=== PATIENT | female | born 2000 | race Caucasian/White ===

== ENCOUNTER 2020-11-18 20:42 | Emergency (ER) | payer SELFPAY ==
--- NOTE | 2020-11-18 22:28 | EDM.PDOC ---
ED HPI GENERAL MEDICAL PROBLEM - General Chief Complaint: Abdominal Pain Stated Complaint: ABDOMINAL PAIN/12 WKS Time Seen by Provider: 11/18/20 20:56 Source of Information: Reports: Patient, Significant Other (Boyfriend) History Limitations: Reports: No Limitations - History of Present Illness INITIAL COMMENTS - FREE TEXT/NARRATIVE: Ms. Lopez is a very pleasant 20-year-old woman who now presents the ED stating that she is , with pink spotting coming and going for the past 2 to 3 months, some bilateral lower abdominal discomfort yesterday, 11/17/2020, and nausea this morning. She has also experienced some occasional morning sickness. The patient is G1, P0, with an LMP 08/23/2020, giving her a gestational age of 12w 3d by dates, and an SAUL of 05/30/2021. She states that she has not received any obstetric care, but that she did undergo an obstetric ultrasound on 10/13/2020, which confirmed a SLIP at 8w 0d at that time = 13w 1d gestation today, with an SAUL of 05/25/2021. She states that the ultrasound made no mention of a subchorionic hemorrhage. She states that she is taking a vitamin that she believes contains folic acid. Here in the ED, the patient is found hemodynamically stable, afebrile, saturating 99% on room air. She appears to be comfortable, in no acute distress. Other than the pink spotting, the lower abdominal discomfort, and nausea, the patient denies having a recent fever, chills, sore throat, ear pain, nasal or sinus congestion, cough, dyspnea, chest pain, palpitations, vomiting, constipation, diarrhea, urinary symptoms, recent weight gain or weight loss, recent bloody bowel movements or black bowel movements, recent joint aches, headaches, or rashes. The patient does not have a PCP or Computer Mechanic, stating that she recently moved here from [place]. She has received 2 COVID vaccinations. 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: : 1 Para: 0 Social & Family History - Tobacco Use Tobacco Use Status *Q: Current Every Day Tobacco User Tobacco Use Within Last Twelve Months: Vaping (Nicotine, CBD, THC) Years of Tobacco use: 3 Packs/Tins Daily: 0.3 Month/Year Tobacco Last Used: Stopped smoking while Tobacco Use Comment: Started smoking 2017 - Caffeine Use Caffeine Use: Reports: Coffee, Soda, Tea - Alcohol Use Alcohol Use History: Yes Alcohol Use Frequency: Socially (not while ) - Recreational Drug Use Recreational Drug Use: Yes Drug Use in Last 12 Months: Yes Recreational Drug Type: Reports: Marijuana/Hashish (Vapes THC, CBD) - Living Situation & Occupation Living situation: Reports: Single, with Family 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 ED EXAM - Physical Exam Exam: See Below Exam Limited By: No Limitations General Appearance: Alert, WD/WN, No Apparent Distress Eye Exam: Bilateral Eye: EOMI, Normal Inspection Ears: Normal External Exam, Hearing Grossly Normal Nose: Normal Inspection Throat/Mouth: Normal Inspection, Normal Lips, Normal Voice, No Airway Compromise Head: Atraumatic, Normocephalic Neck: Normal Inspection, Full Range of Motion Respiratory/Chest: No Respiratory Distress, Lungs Clear, Normal Breath Sounds, No Accessory Muscle Use Cardiovascular: Normal Peripheral Pulses, Regular Rate, Rhythm, No Edema, No Gallop, No JVD, No Murmur, No Rub GI/Abdominal Exam: Normal Bowel Sounds, Soft, Non-Tender, No Distention, No Abnormal Bruit, No Mass, Other (Gravid uterus consistent with dates) (Female) Exam: Other (A thick, white, clumpy discharge was present within the vagina. No malodor. No vaginal erythema. The nulliparous cervix is closed, with no blood seen within the cervix or vagina.) Heart Tones: Present Heart Tones per Min: 165 Back Exam: Normal Inspection, Full Range of Motion, NT Extremities: Normal Inspection, Normal Range of Motion, No Pedal Edema, Normal Capillary Refill Neurological: Alert, Oriented, Normal Cognition, No Motor/Sensory Deficits Psychiatric: Normal Affect Skin Exam: Warm, Dry, Intact, Normal Color, No Rash Course - Vital Signs Last Recorded V/S: Last Vital Signs Temp 36.5 C 11/18/20 21:01 Pulse 80 11/18/20 21:01 Resp 20 11/18/20 21:01 BP 109/69 11/18/20 21:01 Pulse Ox 99 11/18/20 21:01 - Orders/Labs/Meds Orders: Active Orders 24 hr Category Date Time Status Heart Rate [RC] Click to Edit Care 11/18/20 22:21 Active PATIENT RETYPE [BBK] Routine Lab 11/18/20 23:36 Ordered Labs: Laboratory Tests 11/18/20 11/18/20 11/18/20 Range/Units 22:30 22:30 22:30 WBC 8.46 (3.98-10.04) K/mm3 RBC 4.52 (3.98-5.22) M/mm3 Hgb 12.8 (11.2-15.7) gm/dl Hct 38.8 (34.1-44.9) % MCV 85.8 (79.4-94.8) fl MCH 28.3 (25.6-32.2) pg MCHC 33.0 (32.2-35.5) g/dl RDW Std Deviation 40.1 (36.4-46.3) fL Plt Count 242 (182-369) K/mm3 MPV 11.0 (9.4-12.3) fl Neutrophils % (Manual) 63 H (40-60) % Band Neutrophils % 1 (0-10) % Lymphocytes % (Manual) 27 (20-40) % Atypical Lymphs % 2 % Monocytes % (Manual) 4 (2-10) % Eosinophils % (Manual) 1 (0.7-5.8) % Basophils % (Manual) 2 H (0.1-1.2) Platelet Estimate Adequate RBC Morph Comment Normal HCG, Quant 81966.0 mIU/mL C trachomatis DNA (PCR) N gonorrhoeae DNA (PCR) Blood Type A POSITIVE 11/19/20 Range/Units 00:00 WBC (3.98-10.04) K/mm3 RBC (3.98-5.22) M/mm3 Hgb (11.2-15.7) gm/dl Hct (34.1-44.9) % MCV (79.4-94.8) fl MCH (25.6-32.2) pg MCHC (32.2-35.5) g/dl RDW Std Deviation (36.4-46.3) fL Plt Count (182-369) K/mm3 MPV (9.4-12.3) fl Neutrophils % (Manual) (40-60) % Band Neutrophils % (0-10) % Lymphocytes % (Manual) (20-40) % Atypical Lymphs % % Monocytes % (Manual) (2-10) % Eosinophils % (Manual) (0.7-5.8) % Basophils % (Manual) (0.1-1.2) Platelet Estimate RBC Morph Comment HCG, Quant mIU/mL C trachomatis DNA (PCR) Not detected N gonorrhoeae DNA (PCR) Not detected Blood Type - Re-Assessments/Exams Free Text/Narrative Re-Assessment/Exam: 11/18/20 22:23 Because the patient underwent an ultrasound on 10/13/2020, 1 to 2 months after the onset of her occasional pink spotting, that established a single live intrauterine and showed no subchorionic hemorrhage, a repeat ultrasound today is not necessary to rule out an ectopic. For today's purposes, I have ordered a CBC, quantitative hCG, ABO/Rh, and heart tones. She will be placed into our gynecology room so that I can examine her cervix. 11/18/20 22:50 Notified by Daysi CHAPPELL that the heart rate is 165 bpm. 11/19/20 00:00 The patient's CBC is unremarkable. Her quantitative hCG is 46,398.0. Her blood type is A-Positive. On pelvic examination, a thick, white, clumpy discharge was present within the vagina. No malodor. No vaginal erythema. The nulliparous cervix is closed, with no blood seen within the cervix or vagina. A wet prep, GC/chlamydia by PCR swab, and vaginal culture was obtained. 11/19/20 00:44 The vaginal wet prep is remarkable for no yeast, Trichomonas, or clue cells seen, rare WBCs, many epithelial cells, rare RBCs, and negative trichomonas antigen. 11/19/20 01:50 The patient's gonococcus/chlamydia by PCR is negative for both. 11/19/20 01:53 Test results discussed with the patient and a friend (her boyfriend is no longer present). As above, today's work-up is grossly unremarkable. A will discharge her with the recommendation that she follow-up with Dr. Ardon, to establish an Computer Mechanic. She should continue to take her vitamins with folic acid. She may take [id number] acetaminophen, only, for discomfort. Departure - Departure Time of Disposition: 01:55 Disposition: Home, Self-Care 01 Condition: Good Clinical Impression: Discomfort during , Spotting affecting - Discharge Information *PRESCRIPTION DRUG MONITORING PROGRAM REVIEWED*: Not Applicable *COPY OF PRESCRIPTION DRUG MONITORING REPORT IN PATIENT MELBA: Not Applicable Instructions: Abdominal Pain, Adult, [id number] Referrals: PCP,None [Primary Care Provider] - Fausto Ardon MD [Physician] - Forms: ED Department Discharge Additional Instructions: You were seen in the emergency room for 2 to 3 months of occasional vaginal spotting, lower abdominal discomfort since Sunday, and nausea yesterday morning, associated with your first . Work-up in the ER included several blood tests, a wet prep, a gonorrhea/chlamydia by PCR test, and heart rate by Doppler. You are not anemic. Your blood type is A-positive. Your quantitative hCG ( hormone) is 46,398, which is normal for a 12 to 13-week . Your fetus's heart rate is 165 bpm, which is normal for a 12 to 13-week . Your wet prep showed no yeast infection. Your gonorrhea/chlamydia swab was negative. Your lower abdominal pain appears to be due to discomfort of , also known as round ligament pain. You may take [id number] acetaminophen (Tylenol), only, as needed for discomfort. We recommend that you follow-up with the Computer Mechanic Dr. Fausto Ardon, at the next available appointment. If any other problems, please do not hesitate to return to the ER. Sepsis Event Note (ED) - Focused Exam Vital Signs: Vital Signs Temp Pulse Resp BP Pulse Ox 11/18/20 21:01 36.5 C 80 20 109/69 99 - My Orders Last 24 Hours: My Active Orders 11/18/20 22:21 Heart Rate [RC] Click to Edit 11/18/20 23:36 PATIENT RETYPE [BBK] Routine - Assessment/Plan Last 24 Hours: My Active Orders 11/18/20 22:21 Heart Rate [RC] Click to Edit 11/18/20 23:36 PATIENT RETYPE [BBK] Routine
[2020-11-19 01:35] LABS: C. TRACHOMATIS BY PCR NOT DETECTED; N. GONORRHOEAE BY PCR NOT DETECTED
== END 2020-11-19 02:11 | disposition home or self-care (01) ==
LOC: JD.ED 20:42
DX: O26.851 Spotting complicating pregnancy, first trimester (principal); O99.331 Smoking (tobacco) complicating pregnancy, first trimester; F17.210 Nicotine dependence, cigarettes, uncomplicated; Z3A.12 12 weeks gestation of pregnancy
CPT/HCPCS: 36415; 84702; 85007; 85027; 86900; 86901; 87210; 87491; 87591; 87808; 99284

== ENCOUNTER 2023-03-17 01:53 | Emergency (ER) | payer SELFPAY ==
[2023-03-17 03:02] LABS: BASOPHILS PERCENT AUTO 0.4 % (0.0-1.0); EOSINOPHILS ABSOLUTE AUTO 0.1 K/mm3 (0.0-0.4); HEMATOCRIT 44.3 % (37.0-47.0); HEMOGLOBIN 14.5 gm/dl (12.0-16.0); IMMATURE GRAN ABSOLUTE AUTO 0.02 K/mm3 (0.00-0.05); IMMATURE GRAN PERCENT AUTO 0.2 % (0.0-0.4); LYMPHOCYTES ABSOLUTE AUTO 1.5 K/mm3 (1.0-4.8); LYMPHOCYTES PERCENT AUTO 16.5 % (24.0-44.0); MEAN CORPUSCULAR HEMOGLOBIN 28.8 pg (28.0-32.0); MEAN CORPUSCULAR HGB CONC 32.7 g/dl (32.0-36.0); MEAN CORPUSCULAR VOLUME 88.1 fl (83.0-99.0); MEAN PLATELET VOLUME 10.6 fl (9.4-12.3); MONOCYTES ABSOLUTE AUTO 0.9 K/mm3 (0.0-0.8); MONOCYTES PERCENT AUTO 9.7 % (0.0-8.0); NEUTROPHILS ABSOLUTE AUTO 6.5 K/mm3 (1.8-7.7); NEUTROPHILS PERCENT AUTO 72.2 % (41.0-71.0); PLATELET COUNT,PLT 241 K/mm3 (150-400); RED BLOOD CELL COUNT 5.03 M/mm3 (4.10-5.30); WHITE BLOOD CELL COUNT,WBC 9.04 K/mm3 (3.9-11.3)
[2023-03-17] MEDS: Ketorolac 30 MG/ML SDV IVPUSH ONE (03:03)
[2023-03-17] MEDS: Sodium Chloride 0.9% 1,000 ML IV ONE (03:03)
[2023-03-17] MEDS: Ondansetron 4 MG/2 ML SDV IVPUSH ONE (03:06)
[2023-03-17] MEDS: Sodium Chloride 0.9% 10 ML Syringe FLUSH PRN (03:08)
[2023-03-17 03:21] LABS: APPEARANCE,URINE CLEAR (Clear); BILIRUBIN,URINE NEGATIVE (Negative); COLOR,URINE YELLOW (Yellow); GLUCOSE,URINE NEGATIVE (Negative); KETONES,URINE TRACE (Negative); LEUKOCYTE ESTERASE,URINE NEGATIVE (Negative); NITRITE,URINE NEGATIVE (Negative); OCCULT BLOOD,URINE NEGATIVE (Negative); PROTEIN,URINE NEGATIVE (Negative); UROBILINOGEN,URINE 0.2 (0.2-1.0)
[2023-03-17 03:25] LABS: ALBUMIN 3.7 g/dl (3.4-5.0); ANION GAP 11.1 (5-15); BILIRUBIN TOTAL 0.7 mg/dL (0.2-1.0); BUN/CREATININE RATIO 16.3 (14-18); CALCIUM 9.6 mg/dL (8.5-10.1); CREATININE 0.8 mg/dL (0.55-1.02); EST CRCL DRUG DOSING (CG) 102.39 mL/min; MAGNESIUM 1.6 mg/dL (1.8-2.4); POTASSIUM,K 4.1 mEq/L (3.5-5.1); PROTEIN TOTAL,TP 7.6 g/dl (6.4-8.2)
[2023-03-17 03:27] LABS: RBC,URINE 0-5 /hpf (0-5)
[2023-03-17 03:28] LABS: BACTERIA,URINE FEW /hpf (FEW); MUCUS,URINE MODERATE /hpf (FEW); WBC,URINE 0-5 /hpf (0-5)
[2023-03-17 03:55] LABS: CORONAVIRUS COVID-19 NAA NEGATIVE (NEGATIVE); INFLUENZA A NAA NEGATIVE (NEGATIVE); RESPIRATORY SYNCYTIAL VIR NAA NEGATIVE (NEGATIVE)
[2023-03-17] MEDS: Iopamidol 612 MG/ML 100 ML Bottle IVPUSH ONE (04:50)
[2023-03-17] MEDS: Sodium Chloride 0.9% 10 ML Syringe FLUSH ONE (04:50)
== END 2023-03-17 05:33 | disposition home or self-care (01) ==
LOC: JD.ED 01:53
DX: K52.9 Noninfective gastroenteritis and colitis, unspecified (principal)
CPT/HCPCS: 0241U; 36415; 74177; 80053; 81001; 81025; 83735; 85025; 96361; 96374; 96375; 99284; J1885; J2405; J3490; J7030; Q9967